=== PATIENT | male | born 1950 | race Caucasian/White ===

== ENCOUNTER 2017-09-28 10:57 | Emergency (ER) | payer OTHER ==
[~2017-09-28 10:57] MED LIST: LORA2TAB PO
--- NOTE | 2017-09-28 11:10 | PD ---
HPI Chief Complaint: Psychiatric Symptoms Time Seen by Provider: 11:06 Travel History International Travel<30 days: No Contact w/Intl Traveler<30days: No History of Present Illness HPI 66-year-old male currently on probation, who stated to his community reinvestment act officer that he felt his family might be better off without him. liaison officer called the police as he was concerned and the patient is suicidal although no specific plan as stated. Patient denies any significant medical problems other than from chronic spinal stenosis in the cervical spine shown on MRI. Patient states this is been bothering for the past month with intermittent pain causing increased headaches and neck pain. He denies radicular symptoms. Patient reports that he takes Ativan 2 mg at bedtime to help him sleep but does not take any other psychotropic drugs. He takes Flomax for BPH, and a cholesterol medication. He denies drug or alcohol abuse. Currently his neck and headache is 7 out of 10. He feels overwhelmed with his chronic neck pain in the situation of exam. He feels embarrassed that he seemed to break down this morning with his community reinvestment act officer. He is allergic to sulfa and penicillin PFS Past Medical History Bipolar Disorder: Yes Depression: Yes Psychiatric: Yes (BORDERLINE PERSONALITY DISORDER) Past Surgical History Other Surgery: Yes (ABSCESS B ARMS) Social History Alcohol Use: No Tobacco Use: No Substance Use: Yes (HX OF HEROIN ABUSE QUIT 1982) Allergies-Medications (Allergen,Severity, Reaction): Coded Allergies: Sulfa (Sulfonamide Antibiotics) (Unverified Adverse Reaction, Severe, 02/09) penicillin G (Unverified Adverse Reaction, Mild, 02/09/17) Reported Meds & Prescriptions Reported Meds & Active Scripts Active Reported Lorazepam 2 Mg Tab 2 Mg PO HS PRN Review of Systems Except as stated in HPI: all other systems reviewed are Neg General / Constitutional: No: Fever Eyes: No: Visual changes HENT: Positive: Headaches (See history of present illness), No: Vertigo, Lightheadedness, Sore Throat, Rhinitis, Rhinorrhea, Congestion, Nosebleed, Neck Stiffness, Neck Pain, Dental Difficulties, Earache Cardiovascular: No: Chest Pain or Discomfort Respiratory: No: Shortness of Breath Gastrointestinal: No: Abdominal Pain Genitourinary: No: Dysuria Musculoskeletal: Positive: Arthralgias, Pain (See history of present illness), No: Limited ROM Skin: No Rash Neurologic: No: Weakness Psychiatric: Positive: Depression, Suicidal Ideations, No: Homicidal Ideation Endocrine: No: Polydipsia Hematologic/Lymphatic: No: Easy Bruising Physical Exam Narrative GENERAL: Patient appears very sad and tearful. He looks overwhelmed. SKIN: Warm and dry. Normal color. Normal turgor. HEAD: Atraumatic. Normocephalic. No tenderness with palpation. EYES: Pupils equal and round. No scleral icterus. No injection or drainage. ENT: No nasal bleeding or discharge. Mucous membranes pink and moist. Pharynx is clear. Airways patent. NECK: Trachea midline. Patient has no specific point tenderness along the cervical spine. He has generalized muscle spasm and soft tissue tenderness bilaterally somewhat more on the left than the right. Range of motion is full. CARDIOVASCULAR: Regular rate and rhythm. RESPIRATORY: No accessory muscle use. Clear to auscultation. Breath sounds equal bilaterally. GASTROINTESTINAL: Abdomen soft, non-tender, nondistended. Hepatic and splenic margins not palpable. MUSCULOSKELETAL: Extremities without clubbing, cyanosis, or edema. No obvious deformities. NEUROLOGICAL: Awake and alert. No obvious cranial nerve deficits. Motor grossly within normal limits. Five out of 5 muscle strength in the arms and legs. Normal speech. PSYCHIATRIC: Appropriate mood and affect; insight and judgment normal. Data Data Orders Orders Complete Blood Count With Diff (09/28/17 11:10) Comprehensive Metabolic Panel (09/28/17 11:10) Thyroid Stimulating Hormone (09/28/17 11:10) Urinalysis - C+S If Indicated (09/28/17 11:10) Psych Screen (09/28/17 11:10) Drug Screen, Random Urine (09/28/17 11:10) Alcohol (Ethanol) (09/28/17 11:10) MDM Medical Decision Making Medical Screen Exam Complete: Yes Emergency Medical Condition: Yes Differential Diagnosis Mcdonough act. Depression. Chronic cervical neck pain. Narrative Course Patient appears sad but medically stable at time of exam. Patient is given 10 mg Decadron p.o. Patient is given Lortab 5/325 p.o. Psychiatric labs ordered per protocol. Psych screen is ordered. Patient is medically cleared for psychiatric evaluation. Diagnosis Primary Impression: Cervical spinal stenosis Condition: Stable Shayan Hatch Sep 28, 2017 11:10
[2017-09-28 11:20] VITALS: BP 146/83; PULSE 64; RESP 20; TEMP 97.9; O2SAT 96
[2017-09-28 11:33] VITALS: BP 146/83; PULSE 64; RESP 20; TEMP 97.9; O2SAT 96
[2017-09-28] MEDS ORDERED: LORA-475 PO (11:44)
[2017-09-28] MEDS ORDERED: TAMS5CAP PO (11:44)
[2017-09-28 13:11] LABS: AUTOMATED NEUTROPHIL # 7.3 TH/MM3 (1.8-7.7); BASOPHIL # 0.1 TH/MM3 (0-0.2); BASOPHIL % 0.8 % (0.0-2.0); EOSINOPHIL # 0.3 TH/MM3 (0-0.4); EOSINOPHIL % 3.2 % (0.0-4.0); HEMATOCRIT 44.7 % (39.0-51.0); HEMOGLOBIN 15.3 GM/DL (13.0-17.0); LYMPH % 14.6 % (9.0-44.0); LYMPHOCYTE # 1.4 TH/MM3 (1.0-4.8); MEAN CELL VOLUME 85.8 FL (80.0-100.0); MEAN CORPUSCULAR HEMOGLOBIN 29.4 PG (27.0-34.0); MEAN CORPUSCULAR HGB CONC 34.2 % (32.0-36.0); MEAN PLATELET VOLUME 7.5 FL (7.0-11.0); MONO % 5.1 % (0.0-8.0); MONOCYTE # 0.5 TH/MM3 (0-0.9); NEUT % 76.3 % (16.0-70.0); PLATELET COUNT 215 TH/MM3 (150-450); RED BLOOD COUNT 5.21 MIL/MM3 (4.50-5.90); RED CELL DISTRIBUTION WIDTH 13.7 % (11.6-17.2); WHITE BLOOD COUNT 9.5 TH/MM3 (4.0-11.0)
[2017-09-28 13:17] LABS: BILIRUBIN, URINE NEG (NEG); BLOOD, URINE NEG (NEG); GLUCOSE,URINE NEG (NEG); KETONE, URINE NEG (NEG); NITRITE,URINE NEG (NEG); PH, URINE 6.5 (5.0-8.5); SQUAMOUS EPITHELIAL CELL URINE <1 /hpf (0-5); URINE COLOR YELLOW (YELLW/STRAW); URINE LEUKOCYTE ESTERASE NEG (NEG)
[2017-09-28 13:28] LABS: ALBUMIN 4.1 GM/DL (3.4-5.0); AST (GOT) 31 U/L (15-37); BICARBONATE 27.4 MEQ/L (21.0-32.0); BLOOD UREA NITROGEN 12 MG/DL (7-18); CALCIUM 9.3 MG/DL (8.5-10.1); CHLORIDE 107 MEQ/L (98-107); CREATININE 1.04 MG/DL (0.60-1.30); GLOMERULAR FILTRATION RATE 71 ML/MIN (>89); GLUCOSE,RANDOM 96 MG/DL (74-106); SODIUM (NA) 140 MEQ/L (136-145)
[2017-09-28 13:29] LABS: ALT (GPT) 29 U/L (12-78)
[2017-09-28 13:39] LABS: ALKALINE PHOSPHATASE 70 U/L (45-117); TOTAL BILIRUBIN ADULT 0.5 MG/DL (0.2-1.0); TOTAL PROTEIN 7.4 GM/DL (6.4-8.2)
--- NOTE | 2017-09-28 15:37 | PD.PSY.CON ---
Provisional Diagnosis Admission Date [place] I. Adjustment disorder with depressed mood, history of bipolar disorder, depression [place] II. Unspecified personality disorder, cluster B traits present [place] III. Back and neck pain History of Present Illness Service Psychiatry Consult Requested By ER Reason for Consult Suicidal ideation Primary Care Physician No Primary Care Physician HPI The patient is a 66-year-old man, domiciled with his , employed, currently on probation, with psychiatric history of bipolar disorder, depression , personality disorder, he denies previous psychiatric hospitalizations, denies previous suicide attempts, poor impulse control, he was seeing here in [place] in 2014, diagnosed with borderline personality disorder, medical history of BPH , neck and back pain, who stated to his parking officer that he felt his family might be better off without him. fire management officer called the police as he was concerned and the patient is suicidal although no specific plan as stated. Patient denies any significant medical problems other than from chronic spinal stenosis in the cervical spine shown on MRI. Patient states this is been bothering for the past month with intermittent pain causing increased headaches and neck pain. He denies radicular symptoms. Patient reports that he takes Ativan 2 mg at bedtime to help him sleep but does not take any other psychotropic drugs. He takes Flomax for BPH, and a cholesterol medication. He denies drug or alcohol abuse. At the moment of the psychiatric evaluation the patient denies depressive symptoms, he denies anxiety, he denies cornelio, psychosis, he denies suicidal and homicidal ideation, he denies visual and auditory hallucinations. He says that he was just very upset when his parking officer. His ,Jorge Torres, , was used as collateral information. She clarifies that patient was just upset with the parking officer, she says that he never verbalized suicidal ideation. She reports that the patient has short temper and poor impulse control, but this time she feels safe taking the patient back home with her. Review of Systems Constitutional: DENIES: Diaphoretic episodes, Fatigue, Fever, Weight gain, Weight loss, Chills, Dizziness, Change in appetite, Night Sweats Endocrine: DENIES: Heat/cold intolerance, Polydipsia, Polyuria, Polyphagia Eyes: DENIES: Blurred vision, Diplopia, Eye inflammation, Eye pain, Vision loss , Photosensitivity, Double Vision Ears, nose, mouth, throat: DENIES: Tinnitus, Hearing loss, Vertigo, Nasal discharge, Oral lesions, Throat pain, Hoarseness, Ear Pain, Running Nose, Epistaxis, Sinus Pain, Toothache, Odynophagia Respiratory: DENIES: Apneas, Cough, Snoring, Wheezing, Hemoptysis, Sputum production, Shortness of breath Cardiovascular: DENIES: Chest pain, Palpitations, Syncope, Dyspnea on Exertion , PND, Lower Extremity Edema, Orthopnea, Claudication Gastrointestinal: DENIES: Abdominal pain, Black stools, Bloody stools, Constipation, Diarrhea, Nausea, Vomiting, Difficulty Swallowing, Anorexia Genitourinary: DENIES: Sexual dysfunction, Urinary frequency, Urinary incontinence, Urgency, Hematuria, Dysuria, Nocturia, Penile Discharge, Testicular Pain, Testicular Swelling Musculoskeletal: DENIES: Joint pain, Muscle aches, Stiffness, Joint Swelling, Back pain, Neck pain Integumentary: DENIES: Abnormal pigmentation, Nail changes, Pruritus, Rash Hematologic/lymphatic: DENIES: Bruising, Lymphadenopathy Immunologic/allergic: DENIES: Eczema, Urticaria Neurologic: DENIES: Abnormal gait, Headache, Localized weakness, Paresthesias, Seizures, Speech Problems, Tremor, Poor Balance Psychiatric: DENIES: Anxiety, Confusion, Mood changes, Depression, Hallucinations, Agitation, Suicidal Ideation, Homicidal Ideation, Delusions Past Family Social History Coded Allergies: Sulfa (Sulfonamide Antibiotics) (Unverified Adverse Reaction, Severe, ) penicillin G (Unverified Adverse Reaction, Mild, 09/28/17) Reported Medications Lorazepam (Ativan) 2 Mg Tab, 2 MG PO HS Y for ANXIETY AND/OR AGITATION, TAB 0 Refills 09/28/17 Tamsulosin (Flomax) 0.4 Mg Cap, 0.4 MG PO HS for Manage Prostate Problems, #30 CAP 0 Refills 09/28/17 Family Psych History No family psychiatric history Social History [place], he lives [place] the [place] his , he has a 5 years old daughter, employed in his own business, his highest level of education is a master degree in psychology Patient's Strengths (min. 2) Family support Physical Exam Vital Signs Vital Signs Date Time Temp Pulse Resp B/P (MAP) Pulse Ox O2 Delivery O2 Flow Rate FiO2 09/28/17 11:33 97.9 64 20 146/83 (104) 96 Room Air Lab Results Test 09/28/17 12:50 09/28/17 13:00 Urine Color YELLOW Urine Turbidity CLEAR Urine pH 6.5 Urine Specific [place] 1.008 Urine Protein NEG mg/dL Urine Glucose (UA) NEG mg/dL Urine Ketones NEG mg/dL Urine Occult Blood NEG Urine Nitrite NEG Urine Bilirubin NEG Urine Urobilinogen LESS THAN 2.0 MG/DL Urine Leukocyte Esterase NEG Urine RBC LESS THAN 1 /hpf Urine Squamous Epithelial Cells <1 /hpf Microscopic Urinalysis Comment CULT NOT INDICATED Urine Opiates Screen NEG Urine Barbiturates Screen NEG Urine Amphetamines Screen NEG Urine Benzodiazepines Screen NEG Urine Cocaine Screen NEG Urine Cannabinoids Screen NEG White Blood Count 9.5 TH/MM3 Red Blood Count 5.21 MIL/MM3 Hemoglobin 15.3 GM/DL Hematocrit 44.7 % Mean Corpuscular Volume 85.8 FL Mean Corpuscular Hemoglobin 29.4 PG Mean Corpuscular Hemoglobin Concent 34.2 % Red Cell Distribution Width 13.7 % Platelet Count 215 TH/MM3 Mean Platelet Volume 7.5 FL Neutrophils (%) (Auto) 76.3 % Lymphocytes (%) (Auto) 14.6 % Monocytes (%) (Auto) 5.1 % Eosinophils (%) (Auto) 3.2 % Basophils (%) (Auto) 0.8 % Neutrophils # (Auto) 7.3 TH/MM3 Lymphocytes # (Auto) 1.4 TH/MM3 Monocytes # (Auto) 0.5 TH/MM3 Eosinophils # (Auto) 0.3 TH/MM3 Basophils # (Auto) 0.1 TH/MM3 CBC Comment DIFF FINAL Differential Comment Blood Urea Nitrogen 12 MG/DL Creatinine 1.04 MG/DL Random Glucose 96 MG/DL Total Protein 7.4 GM/DL Albumin 4.1 GM/DL Calcium Level 9.3 MG/DL Alkaline Phosphatase 70 U/L Aspartate Amino Transf (AST/SGOT) 31 U/L Alanine Aminotransferase (ALT/SGPT) 29 U/L Total Bilirubin 0.5 MG/DL Sodium Level 140 MEQ/L Potassium Level 4.8 MEQ/L Chloride Level 107 MEQ/L Carbon Dioxide Level 27.4 MEQ/L Anion Gap 6 MEQ/L Estimat Glomerular Filtration Rate 71 ML/MIN Thyroid Stimulating Hormone 3rd Gen 2.520 uIU/ML Ethyl Alcohol Level LESS THAN 3 MG/DL Mental Status Examination Appearance: Appropriate Consciousness: Alert Orientation: x4 Motor Activity: Normal gait Speech: Unremarkable Language: Adequate Fund of Knowledge: Adequate Attention and Concentration: Adequate Memory: Unremarkable Mood: Appropriate Affect: Appropriate Thought Process & Associations: Intact Thought Content: Appropriate Hallucination Type: None Delusion Type: None Suicidal Ideation: No Suicidal Plan: No Suicidal Intention: No Homicidal Ideation: No Homicidal Plan: No Homicidal Intention: No Insight: Adequate Judgment: Adequate Assessment & Plan Problem List: (1) Adjustment disorder with depressed mood ICD Codes: F43.21 - Adjustment disorder with depressed mood Assessment & Plan: On Psychiatric evaluation today the patient does not present any evidence of depression, anxiety, cornelio or psychosis. The patient denies suicidal and homicidal ideation, he denies visual and auditory hallucinations. Seems to be that recent suicidal statement to parking officer secondary to poor coping skills, poor impulse control, and temperament and character. She does have visible cluster B traits. He does not meet criteria for involuntary psychiatric admission at this moment. Assessment & Plan Estimated LOS: Gerard Perry MD Sep 28, 2017 15:37
== END 2017-09-28 16:35 | disposition home or self-care (01) ==
LOC: NEPD 10:57 → NEPJ 16:35
DX: F43.21 Adjustment disorder with depressed mood (principal); M48.02 Spinal stenosis, cervical region; N40.0 Benign prostatic hyperplasia without lower urinary tract symptoms; F31.9 Bipolar disorder, unspecified; F60.3 Borderline personality disorder; Z79.899 Other long term (current) drug therapy
CPT/HCPCS: 80053; 80307; 81001; 84443; 85025; 99283

== ENCOUNTER 2018-07-06 07:52 | Inpatient (IN) ==
[2018-07-06] MEDS ORDERED: Bupivacaine/Epinephrine Inj 0.25% 50 ML Vial ONE (08:25)
[2018-07-06] MEDS ORDERED: Metoprolol Tartrate 25 MG Tablet PO ONE (09:30)
[2018-07-06] MEDS ORDERED: Chlorhexidine Gluconate 2% 1 Pack (2 Cloths) TOPICAL ONE (09:30)
[2018-07-06] MEDS ORDERED: Vancomycin Inj 1,000 MG in Sodium Chlor 0.9% Inj 250 ML IV.SIG SCH (09:30)
[2018-07-06] MEDS ORDERED: Sodium Chlor 0.9% Inj 500 ML IV.CONT ONE (09:30)
[2018-07-06] MEDS ORDERED: ceFAZolin 2 GM Premix Inj 2 GM/50 ML PIGGYBACK IV.SIG ONE (11:22)
[2018-07-06] MEDS ORDERED: ceFAZolin 2 GM IV; once IV.SIG SCH (11:55)
[2018-07-06] MEDS ORDERED: SODIUM CHLOR 0.9% IRRIGATION ONE (13:56)
[2018-07-06] MEDS ORDERED: GENTAMICIN IRRIGATION ONE (13:56)
[2018-07-06] MEDS ORDERED: Propofol Inj 500 MG/50 ML Vial ONE (14:05)
[2018-07-06] MEDS ORDERED: Sugammadex Inj 200 MG/2 ML Vial IV.PUSH ONE (14:58)
--- NOTE | 2018-07-06 15:00 | P.OP ---
- Preoperative Diagnosis (1) Cervical spinal stenosis Preoperative Diagnosis: Osteophyte disc complex at C3-4. Osteophyte disc complex at C4-5. Osteophyte disc complex C5-6. Osteophyte disc complex at C6-7. Cervical radiculopathy Postoperative Diagnosis: Same Date of procedure: 07/06/18 Procedure: Anterior cervical discectomy decompression with bilateral foraminotomies, C3-4. Anterior cervical discectomy decompression with bilateral foraminotomies, C4-5. Anterior cervical discectomy decompression and bilateral foraminotomies, C5-6. Anterior cervical discectomy decompression and bilateral foraminotomies, C6-7. Left anterior iliac crest bone graft Anesthesia: GETA Surgeon: Daniel Solano MD Crowd Controller: Gisele Rodriguez PA-C Operation and Findings: EBL: 300 cc INDICATIONS: This patient is a 67-year-old white male with significant limitation of cervical motion, cervical spinal stenosis and cervical radiculopathy related to the above condition. Despite extensive conservative care the patient is now developing weakness. He now presents for surgical treatment. NOTE: Gisele Rodriguez PA-C was present for the entire surgical procedure as my scheduling assistant. In my medical opinion her skill and care was necessary for proper management of this patient PROCEDURE: The patient was brought to the operating room and anesthetized in the supine position. This patient was positioned supine on the radiolucent table. All pressure points were protected in the anterior cervical spine and iliac crest was scrubbed with alcohol followed by Hibiclens followed by ChloraPrep. A timeout was done and antibiotics were given within 1 hour time window. Lateral radiographic images were used identifying the proper level. A right anterior incision was made in line with the sternocleidomastoid. The platysma was opened in line with the incision. Deep dissection continued in the interval between the carotid sheath and the esophagus. The longus-coli muscles were lifted on both sides and retractors were positioned allowing good exposure. Lateral radiographic images were used to identify the proper level. Winthrop style interosseous pins were placed at C3 and C4 allowing exposure to that level. The microscope was rolled into the field. A total discectomy was accomplished and posterior osteophytes were removed. The posterior longitudinal ligament and annulus was taken down. Bilateral foraminotomies were accomplished. The endplates were squared up anticipating later bone grafting. A blunt probe could be placed out each foramen without evidence of nerve root compromise. The C3 pin was placed down to C5. An anterior exposure was accomplished. We performed a total discectomy with excision of the posterior annulus and posterior longitudinal ligament. Bilateral foraminotomies were accomplished. Osteophytes were removed. The endplates were squared up anticipating later bone grafting. A blunt probe could be placed out each foramen without evidence of nerve root compromise. The C4 pin was placed down to C6. An anterior exposure was accomplished. We performed a total discectomy with excision of the posterior annulus and posterior longitudinal ligament. Bilateral foraminotomies were accomplished. Osteophytes were removed. The endplates were squared up anticipating later bone grafting. A blunt probe could be placed out each foramen without evidence of nerve root compromise. The C5 pin was placed down to C7. An anterior exposure was accomplished. We performed a total discectomy with excision of the posterior annulus and posterior longitudinal ligament. Bilateral foraminotomies were accomplished. Osteophytes were removed. The endplates were squared up anticipating later bone grafting. A blunt probe could be placed out each foramen without evidence of nerve root compromise. The left iliac crest was approached. A small stab incision was made allowing percutaneous access to the anterior iliac crest. Multiple cores of cancellous bone were harvested and taken to the back table to be used for later bone grafting. The wound was irrigated anesthetized and closed with 4-0 Vicryl followed by Dermabond. The case was turned over to Dr. Emir Solano for fusion and instrumentation per his dictation. FINDINGS: There was severe stenosis especially at the C5-6 level and evidence of osteophyte disc complexes with right greater than left foraminal stenosis at C3-4 and C4-5 and bilateral foraminal stenosis at C6-7. No complication was appreciated. NOTE: This surgery was performed in 2 parts. The first part was the neurosurgical decompression performed under the variable power stereo microscope by the undersigned in addition to the bone graft. The second portion of the surgery will be performed by the orthopedic spine component by co -surgeon, Dr. Emir Solano for the anterior fusion with interbody cage and anterior plate. The skill of 2 surgeons was necessary to perform distinct separate procedural services as dictated above and dictated in the following operative note by Dr. Emir Solano.
[2018-07-06] MEDS ORDERED: Post-op Orders (for Pharmacy) OTHER STA (17:03)
[2018-07-06] MEDS ORDERED: Bisacodyl 10 MG Supp RECTAL PRN (17:03)
[2018-07-06] MEDS ORDERED: Morphine Inj 4 MG/ML Vial IV.PUSH PRN (17:03)
--- NOTE | 2018-07-06 17:03 | XR ---
EXAM DATE: 07/06/2018 4:52 PM EST AGE/SEX: 67 years / Male INDICATIONS: Cervical fusion CLINICAL DATA: This is the patient's initial encounter. Patient reports that signs and symptoms have been present for 1 day and indicates a pain score of Nonresponsive. MEDICAL/SURGICAL HISTORY: Non-responsive. Non-responsive. COMPARISON: No prior exams available for comparison. FINDINGS: Anterior cervical fusion hardware is noted in good position from C3 through C7. CONCLUSION: Anterior cervical fusion hardware is noted from C3 through C7 appears to be in good position. Electronically signed by: Junaid Fairbanks MD Board Certified Radiologist 07/06/2018 5:02 PM EST
[2018-07-06] MEDS ORDERED: Zolpidem Tartrate 5 MG Tablet PO PRN (17:04)
[2018-07-06] MEDS ORDERED: fentaNYL Citrate Inj 100 MCG/2 ML Ampul ONE (17:27)
--- NOTE | 2018-07-06 17:45 | MP ---
cc: Emir Solano MD, Therese MD Quaning,Darion LARSON DATE OF OPERATION: 07/06/2018 PREOPERATIVE DIAGNOSES: 1. C3-C4 osteophyte disk complex, right-sided spinal stenosis, right-sided foraminal stenosis and cervical kyphosis. 2. C4-C5 osteophyte disk complex, moderately severe spinal stenosis. 3. C5-C6 osteophyte disk complex, moderately severe spinal stenosis, bilateral foraminal stenosis; C6-C7 osteophyte disk complex. 4. Cervical spine degenerative disk disease and osteoarthritis. POSTOPERATIVE DIAGNOSES: 1. C3-C4 osteophyte disk complex, right-sided spinal stenosis, right-sided foraminal stenosis and cervical kyphosis. 2. C4-C5 osteophyte disk complex, moderately severe spinal stenosis. 3. C5-C6 osteophyte disk complex, moderately severe spinal stenosis, bilateral foraminal stenosis; C6-C7 osteophyte disk complex. 4. Cervical spine degenerative disk disease and osteoarthritis. PROCEDURE PERFORMED: C3-C4, C4-C5, C5-C6, C6-C7 anterior interbody fusion, SpineNet ACC anterior cervical cage, SpineNet Rhausler anterior spinal instrumentation, C3 to C7. SURGEON: Emir Solano MD HEALTH CARE ANALYST: Cyndi Sevilla PA-C ESTIMATED BLOOD LOSS: 1100 mL. DRAINS: One. COMPLICATIONS: None. PLAN: Activities as per orders. PROCEDURE: Dr. Daniel Solano and myself were co-surgeons. Dr. Daniel Solano performed the neuro decompression portion of the procedure at C3-C4, C4-C5, C5-C6 and C6-C7 and also anterior iliac crest with bone grafting. This is well described in his operative note. My collections assistant, Cyndi Sevilla PA-C, was present for my portion of the surgical case. She was medically necessary because of the complexity of the case and to facilitate the performance of the procedure. The MOISTURE METER OPERATOR at the back table was not of the skill set for this case to manipulate the instruments, e.g. multiple different types of soft tissue retractors, trial implants and permanent implants. The endplates of C6-C7 were prepared for fusion. The hyaline cartilage endplates were removed using angled curettes and burs. A 6/10 x 12 ACC cage placed in the interspace. Anterior iliac crest bone graft was used for interbody fusion. This was done under fluoroscopic guidance. The next interspace cephalad at C5-C6 was prepared for fusion. The hyaline cartilage endplate was removed using angled curettes and bur. A 6/10 x 12 ACC cage was placed in the interspace in satisfactory manner. Anterior iliac crest bone grafting was used under fluoroscopic guidance for interbody fusion. The next level cephalad of the segment at C4-C5 was prepared for fusion. The hyaline cartilage endplate was removed using angled curettes and burs. A 5/10 x 12 ACC cage was placed in the interspace. Anterior iliac crest bone grafting was used for interbody fusion under fluoroscopic guidance. The last interspace at C3-4 was prepared for fusion. The hyaline cartilage endplate was removed using angled curettes and burs. A 5/10 x 12 ACC cage was placed in the interspace. Anterior iliac crest bone grafting was used for interbody fusion under fluoroscopic guidance. Anterior osteophytes at all 4 segments at C3-C4, C4-C5, C5-C6 and C6-C7 were removed using multiple different types of rongeurs and a bur. A 77 mm length SpineNet Rhausler plate was used for anterior spinal instrumentation. It was contoured to accept the patient's normal cervical lordosis. The wound was irrigated copiously, but the wound itself was dry. Two transfixion pins were used. The plate was found to be in a satisfactory position, both on AP and lateral imaging. The wound was irrigated copiously. The wound itself was dry. Two screws were used in the vertebral body at C3, C4, C5, C6, and C7. Each of the screws were 14 mm in length, fixed angle screws. Each of the screws were drilled. Each of the screws were inserted. Each of the screw heads were appropriately locked to the plate. The 2 transfixion pins were removed. Intraoperative fluoroscopy in AP and lateral plane confirmed satisfactory position of the bone graft at C3-C4, C4-C5, C5-C6 and C6-C7; satisfactory placement of the ACC cages at C3-C4, C4-C5, C5-C6 and C6-C7; and satisfactory position of the anterior spinal instrumentation from C3 to C7. The wound was irrigated with copious amounts of sterile saline antibiotic solution. Surgifoam was used throughout the surgical procedure to provide hemostasis. At the time of closure, the wound itself was dry. It was closed over a 10-English Raghav drain. The wound was closed in multiple layers using 3-0 Vicryl. Skin was approximated with running subcuticular 4-0 Vicryl and Dermabond placed over the skin incisions. The patient was placed supine with a cervical orthosis. The patient tolerated the procedure well and arrived in the recovery room in stable and satisfactory condition. Emir Solano MD AWG/es , 04:50 PM , 05:04 PM
[2018-07-06 17:46] LABS: Hematocrit 40.1 % (39.0-51.0); Hemoglobin 13.9 gm/dL (13.0-17.0)
[2018-07-06] MEDS ORDERED: ceFAZolin Inj 1,000 MG in Sodium Chlor 0.9% Inj 100 ML IV.SIG SCH (18:00)
[2018-07-06] MEDS ORDERED: *morphine SULFATE 4 MG/ML PERIprocedure ONLY ONE (18:08)
[2018-07-06] MEDS: Senna/Docusate Sodium 8.6/50 MG Tablet PO SCH (20:43)
[2018-07-06] MEDS: ceFAZolin Inj 1 GM in Sodium Chlor 0.9% Inj 100 ML IV.SIG SCH (20:43)
[2018-07-07] MEDS: ceFAZolin Inj 1 GM in Sodium Chlor 0.9% Inj 100 ML IV.SIG SCH ×2 (02:10→09:05)
--- NOTE | 2018-07-07 07:16 | P.PNOP ---
Subjective Interval history: pt is doing well, post operative neck pain no complaints of arm pain, no left anterior iliac crest pelvis pain Physical Exam Vital signs: Vital Signs 07/06/18 09:07 07/06/18 17:10 07/06/18 17:15 Temperature 97.7 F 97.5 F L Pulse Rate 54 L 64 63 Respiratory Rate 18 12 15 Blood Pressure 129/81 107/61 107/62 Pulse Oximetry 97 100 100 07/06/18 17:30 07/06/18 17:45 07/06/18 18:00 Temperature Pulse Rate 64 60 59 L Respiratory Rate 17 15 16 Blood Pressure 114/66 125/74 127/77 Pulse Oximetry 100 100 99 07/06/18 18:15 07/06/18 18:30 07/06/18 20:00 Temperature 97.4 F L 97.4 F L Pulse Rate 61 60 70 Respiratory Rate 10 L 12 18 Blood Pressure 125/71 133/77 141/80 H Pulse Oximetry 100 100 100 07/07/18 00:00 07/07/18 04:00 Temperature 98.3 F 98.8 F Pulse Rate 75 75 Respiratory Rate 18 18 Blood Pressure 116/61 91/54 L Pulse Oximetry 96 97 Intake & Output 07/06/18 07/07/18 07/07/18 18:59 06:59 18:59 Intake Total 3050 / 3050 200 / 200 Output Total 1999 / 1999 1000 / 1000 Balance 1050 / 1050 -800 / -800 Weight 77.7 kg 78 kg Intake: IV 350 / 350 200 / 200 Vancomycin Inj 1,000 MG In NS 250 / 250 Inj 250 ML @ 250 mls/hr IV.SIG DRILL [facility] Rx#:[id number] Ancef 2 GM Premix Inj 2 gm In 50 / 50 50 ml @ 0 mls/hr IV.SIG .STK- MED ONE Rx#:[id number] Ancef Inj 1 GM In NS Inj 100 ML 200 / 200 @ 100 mls/hr IV.SIG Q6H [facility] Rx #:[id number] Ancef Inj 1,000 MG In NS Inj 50 50 / 50 ML @ As Directed IV.SIG ONCE ONE Rx#:[id number] Oral 0 / 0 0 / 0 Anesthesia Amount 2700 / 2700 Output: Urine 1000 / 1000 Estimated Blood Loss 1100 / 1100 Urine Amount (Catheter) 900 / 900 Indwelling Urethral Catheter 900 / 900 Other: Date of Last Bowel Movement 07/05/18 # Bowel Movements 0 Weight On Admission 77.7 kg Narrative: seen by Dr. Emir Solano, in room cervical dressing dry and intact motor is +5/5 to UE - Urinary Catheter Management Indwelling Urethral Catheter Cath placed during this visit: yes Reason for continuing: Other continuation reason Insertion date: 07/06/18 Insertion time: 11:40 Results - Labs CBC & Chem 7: 07/06/18 17:34 Laboratory Results - last 24 hr 07/06/18 17:34 Hgb 13.9 Hct 40.1 - Imaging Impressions Cervical Spine X-Ray 07/06/18 00:00 CONCLUSION: Anterior cervical fusion hardware is noted from C3 through C7 appears to be in good position. Assessment and Plan - Assessment and Plan POD # 1 s/p C3-7 ACDF [place] collar x 8 weeks d/c ramos [place] 7.5 mg rx was already escribed to pharmacy but pt states that he has pain meds at home, [employer] was unable to find patient avoidance of NSAIDs due to cervical fusion discharge home today, orthopedically stable
[2018-07-07] MEDS: Senna/Docusate Sodium 8.6/50 MG Tablet PO SCH (09:29)
[2018-07-07 11:09] VITALS: BP 111/55; PULSE 74; RESP 16; TEMP 97.8; O2SAT 94
== END 2018-07-07 13:41 | disposition home or self-care (01) | DRG 473 ==
LOC: EDBD → HSDI 07:52 → INTOOBSV 07:52 → N06 18:43
PROVIDERS: ADMIT Orthopaedic Surgery Orthopaedic Surgery of the Spine; ATTEND Orthopaedic Surgery Orthopaedic Surgery of the Spine
CPT/HCPCS: 72040; 76000; 85014; 85018; 94150; C1713; J0690; J1580; J2250; J2270; J2704; J3010; J3370; J7050; J7120; L0150